=== PATIENT | female | born 1960 | race African-American/Black ===

== ENCOUNTER 2019-07-05 15:01 | Inpatient (IN) | payer OTHER ==
[~2019-07-05] VITALS: Ht 167.6 cm; Wt 86.9 kg
[2019-07-05] MEDS ORDERED: METHOCARBAMOL 750 MG TABLET ONE (15:44)
[2019-07-05] MEDS ORDERED: KETOROLAC 30 MG/1 ML ONE (15:44)
[2019-07-05 15:57] LABS: BASOPHILS # (AUTO) 0.02 x10^3/uL (0-0.1); BASOPHILS % (AUTO) 0 % (0-1); EOSINOPHILS # (AUTO) 0.16 x10^3/uL (0-0.4); EOSINOPHILS % (AUTO) 2 % (1-7); LYMPHOCYTES # (AUTO) 1.59 x10^3/uL (1-3.4); LYMPHOCYTES % (AUTO) 18 % (22-44); MD NO; MEAN CORPUSCULAR HEMOGLOBIN 28.3 pg (27.0-34.8); MEAN CORPUSCULAR HGB CONC 33.5 g/dL (32.4-35.8); MEAN CORPUSCULAR VOLUME 84.6 fL (80-100); MEAN PLATELET VOLUME 9.2 fL (7.4-10.4); MONOCYTES # (AUTO) 0.41 x10^3/uL (0.2-0.8); MONOCYTES % (AUTO) 5 % (2-9); NEUTROPHILS # (AUTO) 6.73 x10^3/uL (1.8-6.8); NEUTROPHILS % (AUTO) 76 % (42-75); PLATELET COUNT 325 x10^3/uL (130-400); RED BLOOD COUNT 4.62 x10^6/uL (3.82-5.3)
[2019-07-05] MEDS ORDERED: METHOCARBAMOL 750 MG TABLET PO ONE (16:00)
[2019-07-05] MEDS ORDERED: KETOROLAC 30 MG/1 ML IM ONE (16:00)
[2019-07-05 16:09] LABS: ALANINE AMINOTRANSFERASE 19 U/L (12-78); ALBUMIN 3.2 g/dL (3.4-5.0); ANION GAP 8 mmol/L (5-15); CALCIUM 9.3 mg/dL (8.5-10.1); CHLORIDE 109 mmol/L (98-107); CREATININE 0.46 mg/dL (0.55-1.02)
[2019-07-05 16:12] LABS: ALKALINE PHOSPHATASE 105 U/L (45-117); BILIRUBIN,TOTAL 0.3 mg/dL (0.2-1.0); TOTAL PROTEIN 7.5 g/dL (6.4-8.2); TROPONIN I 0.051 ng/mL (0.000-0.045)
[2019-07-05] MEDS ORDERED: ASPIRIN 81 MG TABLET CHEW ONE (16:36)
[2019-07-05] MEDS ORDERED: ASPIRIN 81 MG TABLET CHEW PO ONE (17:00)
--- NOTE | 2019-07-05 17:07 | NUR ---
PT CAME IN CO OF RIGHT SHOULDER PAIN. X RAY TAKEN AND BLOOD DRAWN. LAB WORK REVEALED AN ELEVATED TROPONIN. PT TO BE ADMITTED. PT MEDICATED PER PROVIDER, SEE JUN. PT PLACED ON BLASTING GANG MINER. IV STARTED. ASSESSMENT COMPLETE. PT EDUCATED ON PLAN OF CARE. EKG DONE IN TRIAGE. BLANKET PROVIDED. CALL LIGHT WITHIN REACH.
[2019-07-05] MEDS ORDERED: ONDANSETRON 2MG/ML, 2ML ONE ×2 (17:11→19:05)
[2019-07-05] MEDS ORDERED: ONDANSETRON 2MG/ML, 2ML IVPush ONE ×2 (17:30→19:00)
--- NOTE | 2019-07-05 17:46 | NUR ---
PT RESTING IN [place]. AWAITING ROOM UPSTAIRS FOR ADMIT. PT EDUCATED ON PLAN OF CARE
[2019-07-05] MEDS ORDERED: MORPHINE SULFATE 4 MG/ML, 1ML IVPush PRN (19:00)
[2019-07-05] MEDS ORDERED: MORPHINE SULFATE 4 MG/ML, 1ML ONE (19:06)
[2019-07-05] MEDS ORDERED: POTASSIUM CHLORIDE 20 MEQ TAB.ER.PRT ONE (19:55)
[2019-07-05] MEDS ORDERED: morphine SULFATE 10 MG/ML, 1ML IV PRN (20:00)
[2019-07-05] MEDS ORDERED: NITROGLYCERIN 0.4 MG BOTTLE (25 TABS) SL PRN (20:00)
[2019-07-05] MEDS ORDERED: hydrALAzine 20 MG/ML, 1ML IVPush PRN (20:00)
[2019-07-05] MEDS ORDERED: POTASSIUM CHLORIDE 20 MEQ TAB.ER.PRT PO ONE (20:00)
[2019-07-05] MEDS ORDERED: KETOROLAC 30 MG/1 ML IV PRN (20:00)
[2019-07-05] MEDS ORDERED: PLEASE ENTER ALLERGIES MC SCH (20:00)
[2019-07-05] MEDS ORDERED: ACETAMINOPHEN 325 MG TABLET PO PRN (20:00)
[2019-07-05] MEDS ORDERED: TEMAZEPAM 15 MG CAPSULE PO ONE (22:30)
[2019-07-05 22:36] VITALS: BP 179/98
[2019-07-05 22:46] LABS: TROPONIN I 0.044 ng/mL (0.000-0.045)
[2019-07-05] MEDS: morphine SULFATE 10 MG/ML, 1ML IVPush PRN (22:57)
[2019-07-06 01:34] VITALS: BP 153/85
[2019-07-06] MEDS: morphine SULFATE 10 MG/ML, 1ML IVPush PRN ×3 (02:14→10:28)
[2019-07-06] MEDS: ONDANSETRON 2MG/ML, 2ML IVPush PRN ×2 (02:14→10:34)
[2019-07-06 02:23] VITALS: BP 153/93
[2019-07-06 05:14] LABS: ANION GAP 6 mmol/L (5-15); CALCIUM 8.9 mg/dL (8.5-10.1); CHLORIDE 111 mmol/L (98-107); CREATININE 0.46 mg/dL (0.55-1.02)
[2019-07-06 05:18] LABS: TROPONIN I 0.048 ng/mL (0.000-0.045)
[2019-07-06] MEDS ORDERED: ASPIRIN 325 MG TABLET EC PO SCH (06:00)
[2019-07-06 06:09] LABS: MEAN CORPUSCULAR HEMOGLOBIN 28.7 pg (27.0-34.8); MEAN CORPUSCULAR HGB CONC 33.9 g/dL (32.4-35.8); MEAN CORPUSCULAR VOLUME 84.5 fL (80-100); RED BLOOD COUNT 4.36 x10^6/uL (3.82-5.3); RED CELL DISTRIBUTION WIDTH 13.3 % (9.6-15.2)
[2019-07-06 06:10] LABS: MD YES; MEAN PLATELET VOLUME 9.3 fL (7.4-10.4); PLATELET COUNT 291 x10^3/uL (130-400)
[2019-07-06 06:13] LABS: <PLATELET ESTIMATE> ADEQUATE; <PLT MORPHOLOGY> NORMAL PLT MORPH; <RBC MORPHOLOGY> NORMAL; EOS% (MANUAL) 1 % (1-7); LYMPH#(MANUAL) 2.81 x10^3/uL (1-3.4); LYMPHS% (MANUAL) 29 % (22-44); MONOS#(MANUAL) 0.58 x10^3/uL (0.3-2.7); MONOS% (MANUAL) 6 % (2-9); SEG#(MANUAL) 6.21 x10^3/uL (1.8-6.8); SEGS% (MANUAL) 64 % (42-75)
[2019-07-06 07:33] VITALS: BP 155/99
[2019-07-06] MEDS ORDERED: REGADENOSON 0.4 MG/5 ML SYRINGE ONE (10:05)
[2019-07-06 10:42] LABS: TROPONIN I 0.042 ng/mL (0.000-0.045)
[2019-07-06] MEDS ORDERED: TEMAZEPAM 15 MG CAPSULE PO PRN (11:30)
[2019-07-06 13:58] VITALS: BP 153/82
== END 2019-07-06 15:38 | disposition home or self-care (01) | DRG 948 ==
LOC: ED 17:08 → EDIP 17:43 → 5SO 20:06 → DCLOUNGE 07-06 15:34
PROVIDERS: ADMIT Internal Medicine Infectious Disease; ATTEND Family Medicine
DX: R79.89 Other specified abnormal findings of blood chemistry (principal); E66.9 Obesity, unspecified; E87.6 Hypokalemia; F17.210 Nicotine dependence, cigarettes, uncomplicated; K21.9 Gastro-esophageal reflux disease without esophagitis; M19.019 Primary osteoarthritis, unspecified shoulder; M25.511 Pain in right shoulder; R03.0 Elevated blood-pressure reading, without diagnosis of hypertension; I25.10 Atherosclerotic heart disease of native coronary artery without angina pectoris; Z68.30 Body mass index [BMI] 30.0-30.9, adult; Z82.49 Family history of ischemic heart disease and other diseases of the circulatory system
CPT/HCPCS: 36415; 71045; 78452; 80048; 80053; 83036; 83735; 84484; 85025; 93005; 93017; G0378; J1885; J2405; J2785; A9502; J0360; J2270